=== PATIENT | female | born 1945 | race Caucasian/White ===

== ENCOUNTER 2023-11-26 09:00 | Day surgery (SDC) | payer MEDICARE ==
[~2023-11-26] VITALS: Ht 165.1 cm; Wt 81.6 kg
[2023-11-26] VITALS (9 sets, daily range): BP systolic 132–143; BP diastolic 44–52; PULSE 46–61; RESP 10–17; O2SAT 93–98
[2023-11-26] MEDS ORDERED: CLON0.2T PO (09:58)
[2023-11-26] MEDS ORDERED: DAPA10TA PO (09:58)
[2023-11-26] MEDS ORDERED: NYST15PO4 TOP (09:58)
[2023-11-26] MEDS ORDERED: FLUT16SP26 BOTHNARES (09:58)
[2023-11-26] MEDS ORDERED: FAMO20TA8 PO (09:58)
[2023-11-26] MEDS ORDERED: SPIR50TA5 PO (09:58)
[2023-11-26] MEDS ORDERED: SITA100T15 PO (09:58)
[2023-11-26] MEDS ORDERED: METO-395 PO (09:58)
[2023-11-26] MEDS ORDERED: LEVO175T2 PO (09:58)
[2023-11-26] MEDS ORDERED: KEN0.1O TOP (09:58)
[2023-11-26] MEDS ORDERED: MAGN400C PO (09:58)
[2023-11-26] MEDS ORDERED: GABA300C PO (09:58)
[2023-11-26] MEDS ORDERED: NITR0.3T10 PO (09:58)
[2023-11-26] MEDS ORDERED: LOSA50TA64 PO (09:58)
[2023-11-26] MEDS ORDERED: CALC0.2535 PO (09:58)
[2023-11-26 10:01] LABS: BASOPHILS % (AUTO) 0.5 % (0-1); EOSINOPHILS # (AUTO) 0.5 X10'3 (0-0.9); EOSINOPHILS % (AUTO) 6.5 % (0-6); HEMATOCRIT 44.8 % (35.0-45.0); HEMOGLOBIN 14.8 g/dl (12.0-16.0); LYMPHOCYTES # (AUTO) 1.2 X10'3 (1.1-4.8); LYMPHOCYTES % (AUTO) 14.6 % (21-51); MEAN CORPUSCULAR HEMOGLOBIN 28.3 PG (27.0-31.0); MEAN CORPUSCULAR HGB CONC 33.1 g/dL (33.0-36.5); MEAN CORPUSCULAR VOLUME 85.4 FL (78-98); MEAN PLATELET VOLUME 9.6 FL (7.4-10.4); MONOCYTES # (AUTO) 0.8 X10'3 (0-0.9); MONOCYTES % (AUTO) 9.5 % (2-12); NEUTROPHILS # (AUTO) 5.8 X10'3 (1.8-7.7); NEUTROPHILS % (AUTO) 68.9 % (42-75); PLATELET COUNT 207 X10'3 (140-440); RED BLOOD COUNT 5.24 X10'6 (4.20-5.60); RED CELL DISTRIBUTION WIDTH 14.5 % (11.5-14.5); WHITE BLOOD COUNT 8.5 X10'3 (4.5-11.0)
[2023-11-26 10:10] LABS: INR 1.1 INR; PROTHROMBIN TIME 11.6 SECONDS (9.0-12.0)
[2023-11-26] MEDS: normal saline 1,000 ML IV SCH (10:12)
[2023-11-26] MEDS: sodium bicarbonate 1meq/ml syr 150 ML in dextrose 5%-water 1,000 ML IV SCH (10:12)
[2023-11-26] MEDS: diphenhydrAMINE 25mg capsule PO PRN (10:13)
[2023-11-26 10:15] LABS: ALBUMIN 3.8 G/DL (3.4-5.0); ANION GAP 9 (8-16); BLOOD UREA NITROGEN 15 MG/DL (7-18); BUN/CREATININE RATIO 14.9 (10.0-20.0); CALCIUM 9.3 MG/DL (8.5-10.1); CHLORIDE 100 MMOL/L (99-107); CREATININE 1.01 MG/DL (0.40-0.90); GLUCOSE 125 MG/DL (70-104); SODIUM 134 MMOL/L (135-145); TOTAL CARBON DIOXIDE 24.8 MMOL/L (24-32); eCRCL 42 ML/MIN; eGFR 53 ML/MIN
[2023-11-26] MEDS ORDERED: heparin 1,000unit/ml 10ml vial 10 ML ONE (10:58)
[2023-11-26] MEDS ORDERED: verapamil 2.5 mg/ml inj IV ONE (10:58)
[2023-11-26] MEDS ORDERED: iohexol 350 MG/ML 50ML vial IV ONE ×2 (10:58→12:01)
[2023-11-26] MEDS ORDERED: iohexol 350MG/ML 100ml bottle IV ONE (10:58)
[2023-11-26] MEDS ORDERED: fentaNYL/PF 50MCG/1 ML 2ML syringe ONE (10:58)
[2023-11-26] MEDS ORDERED: midazolam 1 mg/ML 2ml injection ONE ×3 (10:58→11:58)
[2023-11-26] MEDS ORDERED: LIDOcaine 1% (10mg/ml) 2ml vial ONE ×2 (11:00→11:46)
[2023-11-26] MEDS ORDERED: nitroGLYCERIN 500mcg/5mL D5W 5 ML IV ONE (11:00)
[2023-11-26] MEDS ORDERED: atropine 0.1mg/ml 10ml syringe ONE (11:36)
[2023-11-26] MEDS ORDERED: LIDOcaine 1% 30ml preserv. free vial ONE (11:47)
[2023-11-26] MEDS ORDERED: ondansetron/PF 4mg/2ml inj IV PRN (12:55)
[2023-11-26] MEDS ORDERED: HYDROcodone/acetaminophen 10/325mg tab PO PRN (12:55)
[2023-11-26] MEDS ORDERED: proCHLORperazine 10 MG/2 ml inj IV PRN (12:55)
[2023-11-26] MEDS ORDERED: HYDROcodone/acetaminophen 5mg/325mg tablet PO PRN (12:55)
== END 2023-11-26 16:10 | disposition home or self-care (01) ==
LOC: SSTAY O 09:00
PROVIDERS: ATTEND Internal Medicine Cardiovascular Disease
DX: R07.9 Chest pain, unspecified (principal); I10 Essential (primary) hypertension; E11.9 Type 2 diabetes mellitus without complications; E89.0 Postprocedural hypothyroidism; K21.9 Gastro-esophageal reflux disease without esophagitis; Z79.890 Hormone replacement therapy; Z79.899 Other long term (current) drug therapy; Z90.49 Acquired absence of other specified parts of digestive tract; Z98.890 Other specified postprocedural states; Z88.8 Allergy status to other drugs, medicaments and biological substances
CPT/HCPCS: 36415; 80048; 82948; 83735; 85025; 85610; 93005; 93458; 99152; 99153; J1644; J2250; J3010; J3490; J7030; J7070; Q0163; Q9967; A6258; A6402; A6449; C1760; C1894; J0461

== ENCOUNTER 2024-09-28 05:38 | Day surgery (SDC) | payer MEDICARE ==
[2024-09-21 10:52] LABS: BASOPHILS % (AUTO) 0.6 % (0-1); EOSINOPHILS # (AUTO) 0.3 X10'3 (0-0.9); EOSINOPHILS % (AUTO) 4.1 % (0-6); LYMPHOCYTES # (AUTO) 1.7 X10'3 (1.1-4.8); LYMPHOCYTES % (AUTO) 21.3 % (21-51); MEAN CORPUSCULAR HEMOGLOBIN 29.1 PG (27.0-31.0); MEAN CORPUSCULAR HGB CONC 33.2 g/dL (33.0-36.5); MEAN CORPUSCULAR VOLUME 87.9 FL (78-98); MEAN PLATELET VOLUME 8.5 FL (7.4-10.4); MONOCYTES # (AUTO) 0.8 X10'3 (0-0.9); MONOCYTES % (AUTO) 10.2 % (2-12); NEUTROPHILS # (AUTO) 5.1 X10'3 (1.8-7.7); NEUTROPHILS % (AUTO) 63.8 % (42-75); PRE OP HEMATOCRIT 43.6 % (35.0-45.0); PRE OP HEMOGLOBIN 14.5 g/dL (12.0-16.0); PRE OP PLATELET COUNT 194 X10'3 (140-440); RED BLOOD COUNT 4.96 X10'6 (4.20-5.60); RED CELL DISTRIBUTION WIDTH 14.4 % (11.5-14.5)
[2024-09-21 11:56] LABS: PRE OP INR 1.1 INR; PRE OP PROTIME 11.3 SECONDS (9.0-12.0)
[2024-09-21 12:25] LABS: ALBUMIN 3.7 G/DL (3.4-5.0); ALBUMIN/GLOBULIN RATIO 1.1 (1.1-1.5); ALKALINE PHOSPHATASE 58 IU/L (46-116); BLOOD UREA NITROGEN 19 MG/DL (7-18); BUN/CREATININE RATIO 20.2 (10.0-20.0); CALCIUM 8.3 MG/DL (8.5-10.1); CHLORIDE 100 MMOL/L (99-107); CREATININE 0.94 MG/DL (0.40-0.90); PRE OP ALT 23 U/L (30-65); PRE OP ANION GAP 10 (8-16); PRE OP AST 11 U/L (10-37); PRE OP BILIRUB, TOTAL 0.5 MG/DL (0.0-1.0); PRE OP GLUCOSE 128 MG/DL (70-104); PRE OP POTASSIUM 3.8 MMOL/L (3.4-5.1); PRE OP SODIUM 136 MMOL/L (135-145); TOTAL CARBON DIOXIDE 25.7 MMOL/L (24-32); TOTAL PROTEIN 7.1 G/DL (6.4-8.2); eGFR 58 ML/MIN
[~2024-09-28] VITALS: Ht 167.6 cm; Wt 84.0 kg
[2024-09-28] VITALS (9 sets, daily range): BP systolic 126–150; BP diastolic 60–84; PULSE 54–69; RESP 9–15; TEMP 98.4; O2SAT 94–100
[~2024-09-28 05:38] MED LIST: CALC0.2535 PO; CALC300T4 PO; CETI10CA PO; CLOP-32 PO; DAPA10TA PO; FLUT16SP26 BOTHNARES; GABA300C PO; LANS15TA5 PO; LEVO175T2 PO; LOSA50TA64 PO; MAGN400C PO; METO-395 PO; NITR0.3T10 PO; SITA100T15 PO; SPIR50TA5 PO; ringers solution, lacted 1,000 ML IV SCH
[2024-09-28] MEDS: famotidine 20mg tablet PO ONE (06:10)
[2024-09-28] MEDS: ceFAZolin 2gm in dextrose, iso 50 ML IV ONE (06:10)
[2024-09-28] MEDS: DOCUMENT DATE & TIME OF BETA-BLOCKER PO ONE (06:10)
[2024-09-28] MEDS ORDERED: BUPIVAcaine 2.5mg/ml inj 50ml vial (contains preservative) ONE (06:39)
[2024-09-28] MEDS ORDERED: LIDOcaine 1% 30ml preserv. free vial ONE (06:39)
[2024-09-28] MEDS ORDERED: methylene blue (5mg/ml) 50mg/10ml ampul IV ONE (06:39)
[2024-09-28] MEDS ORDERED: BUPIVACAINE liposomal/PF 13.3 MG/ML 10mL vial IM ONE (06:40)
[2024-09-28] MEDS ORDERED: ondansetron/PF 4mg/2ml inj ONE (07:22)
[2024-09-28] MEDS ORDERED: propofol inj 20 ML IV ONE (07:22)
[2024-09-28] MEDS ORDERED: LIDOcaine 2% (20mg/ml) 5ml vial ONE (07:22)
[2024-09-28] MEDS ORDERED: midazolam 1 mg/ML 2ml injection ONE (07:22)
[2024-09-28] MEDS ORDERED: dexamethasone sod phosphate 4mg/ml inj. ONE (07:22)
[2024-09-28] MEDS ORDERED: fentaNYL/PF 50MCG/1 ML 2ML syringe ONE (07:22)
[2024-09-28] MEDS ORDERED: acetaminophen 1,000mg/100ml IV 100 ML IV ONE (07:23)
[2024-09-28] MEDS ORDERED: fentaNYL/PF 50MCG/1 ML 2ML syringe IV PRN ×2 (07:30)
[2024-09-28] MEDS ORDERED: ringers solution, lacted 1,000 ML IV SCH (07:30)
[2024-09-28] MEDS ORDERED: hydrALAZINE 20mg/ml inj. IV PRN (07:30)
[2024-09-28] MEDS ORDERED: labetalol 20mg/4ml (5mg/ml) syringe IV PRN (07:30)
[2024-09-28] MEDS ORDERED: ondansetron/PF 4mg/2ml inj IV PRN (07:30)
[2024-09-28] MEDS ORDERED: sevoflurane 250ml liquid IH ONE (07:45)
[2024-09-28] MEDS: methylene blue (5mg/ml) 50mg/10ml ampul IV ONE (08:21)
[2024-09-28] MEDS: morphine 4 MG/ML inj SYRINge IV PRN (09:29)
[2024-09-28] MEDS: morphine 2 MG/ML inj. syringe IV PRN (09:56)
[2024-09-28] MEDS: HYDROcodone/acetaminophen 5mg/325mg tablet PO ONE (10:02)
== END 2024-09-28 11:07 | disposition home or self-care (01) ==
LOC: PAS 05:38
PROVIDERS: ATTEND Surgery
DX: C50.411 Malignant neoplasm of upper-outer quadrant of right female breast (principal); I47.10 Supraventricular tachycardia, unspecified; I12.9 Hypertensive chronic kidney disease with stage 1 through stage 4 chronic kidney disease, or unspecified chronic kidney disease; E11.22 Type 2 diabetes mellitus with diabetic chronic kidney disease; N18.30 Chronic kidney disease, stage 3 unspecified; K21.9 Gastro-esophageal reflux disease without esophagitis; Z88.8 Allergy status to other drugs, medicaments and biological substances; Z83.3 Family history of diabetes mellitus; Z82.49 Family history of ischemic heart disease and other diseases of the circulatory system; Z79.899 Other long term (current) drug therapy; Z79.01 Long term (current) use of anticoagulants; Z90.710 Acquired absence of both cervix and uterus; Z98.890 Other specified postprocedural states; Z90.49 Acquired absence of other specified parts of digestive tract
CPT/HCPCS: 19301; 36415; 38525; 38900; 76098; 80053; 82948; 85025; 85610; 85730; 93005; A4215; A4618; A6258; A7000; J0131; J0666; J0690; J1100; J2003; J2250; J2270; J2405; J2704; J3010; J3490; J7030; J7120; Q9968; Z7506; Z7508; Z7512; Z7610